=== PATIENT | female | born 1985 | race Asian ===

== ENCOUNTER 2016-05-21 07:30 | Inpatient (IN) | payer SELFPAY ==
[~2016-05-21] VITALS: Ht 165.1 cm; Wt 64.4 kg
[2016-05-24] MEDS ORDERED: CEFAZOLIN 2 GM IVPB PREMIX 50 ML IV ONE (10:00)
[2016-05-24 10:21] LABS: BASOPHILS % (AUTO) 0.3 % (0.0-2.0); EOSINOPHILS % (AUTO) 0.4 % (0.0-4.0); HEMATOCRIT 34.2 % (36-48); HEMOGLOBIN 11.8 g/dL (12.0-16.0); LYMPHOCYTES # (AUTO) 1.1 K/uL (1.0-5.5); LYMPHOCYTES % (AUTO) 17.7 % (20.5-51.5); MEAN CORPUSCULAR HEMOGLOBIN 32 pg (27-31); MEAN CORPUSCULAR HGB CONC 35 % (32-36); MEAN CORPUSCULAR VOLUME 93 fL (79.0-98.0); MONOCYTES # (AUTO) 0.7 K/uL (0.0-1.0); MONOCYTES % (AUTO) 11.2 % (1.7-9.3); NEUTROPHILS # (AUTO) 4.5 K/uL (1.8-7.7); NEUTROPHILS % (AUTO) 70.4 % (40.0-70.0); PLATELET COUNT (AUTO) 185 K/uL (130-430); RED BLOOD CELL COUNT(AUTO) 3.68 MIL/uL (4.2-6.2); RED CELL DISTRIBUTION WIDTH 12.9 % (9.0-15.0); WHITE BLOOD COUNT (AUTO) 6.3 K/uL (4.8-10.8)
[2016-05-24 11:37] VITALS: BP 108/66; PULSE 76; RESP 20; TEMP 98
[2016-05-24] MEDS ORDERED: OXYTOCIN/NORMAL SALINE 1,000 ML IV ONE ×2 (12:41→22:19)
[2016-05-24] MEDS ORDERED: LANOLIN 7 GM OINT. TP PRN (12:45)
[2016-05-24] MEDS ORDERED: OXYCODONE/ACETAMINOPHEN 5-325 TABLET PO PRN (12:45)
[2016-05-24] MEDS ORDERED: MEASLES,MUMPS&RUBELLA VACC/PF 12500 UNIT/0.5 ML VIAL SUBQ PRN (12:45)
[2016-05-24] MEDS ORDERED: ANUSOL 1 EA SUPP.RECT (PREPARATION H) RC PRN (12:45)
[2016-05-24] MEDS ORDERED: HYDROcodone/ACETAMIN 5-325 MG TAB (NORCO/ VICODIN) PO PRN (12:45)
[2016-05-24] MEDS ORDERED: LR 1,000 ML IV ONE (13:07)
[2016-05-24] MEDS ORDERED: KETOROLAC TROMETHAMINE 30 MG VIAL IM PRN (13:15)
[2016-05-24] MEDS ORDERED: fentaNYL CITRATE/PF 100 MCG/2 ML AMP IVP PRN (13:15)
[2016-05-24] MEDS ORDERED: NALBUPHINE HCL 10 MG/ML AMP IVP PRN (13:15)
[2016-05-24] MEDS ORDERED: ePHEDrine sulfate 50 MG/ML VIAL IVP PRN (13:15)
[2016-05-24] MEDS ORDERED: NALOXONE HCL 0.4 MG/ML AMP (NARCAN) IVP PRN (13:15)
[2016-05-24] MEDS ORDERED: DIPHENHYDRAMINE INJ 50 MG/ML VIAL IVP PRN (13:15)
[2016-05-24] MEDS ORDERED: ONDANSETRON HCL 4 MG/2 ML VIAL IVP PRN ×2 (13:15)
[2016-05-24 13:40] VITALS: BP 107/70
[2016-05-24] MEDS ORDERED: fentaNYL CITRATE/PF 100 MCG/2 ML AMP ONE (14:00)
[2016-05-24] MEDS ORDERED: MORPHINE SULFATE 10MG/10ML PF AMP ONE (14:00)
[2016-05-24] MEDS ORDERED: OXYTOCIN 10 UNIT/ML VIAL ONE (14:00)
[2016-05-24] MEDS ORDERED: METOCLOPRAMIDE HCL 10 MG/2 ML VIAL ONE (14:00)
[2016-05-24] MEDS ORDERED: LR 1,000 ML IV.SOLN IV ONE (14:00)
[2016-05-24] MEDS ORDERED: NS IRRIG SOLN 1000 ML IR ONE (14:00)
[2016-05-24] MEDS ORDERED: DEXAMETHASONE SOD PHOSPHATE 4 MG/ML VIAL ONE (14:00)
[2016-05-24] MEDS ORDERED: KETOROLAC TROMETHAMINE 30 MG VIAL IVP PRN (17:00)
[2016-05-24] MEDS: CEFAZOLIN 1 GM IVPB PREMIX 50 ML IV SCH (17:56)
[2016-05-24] MEDS ORDERED: TEMAZEPAM 15 MG CAPSULE PO PRN (21:00)
[2016-05-25] MEDS: CEFAZOLIN 1 GM IVPB PREMIX 50 ML IV SCH ×2 (00:10→06:03)
[2016-05-25 07:08] LABS: BASOPHILS % (AUTO) 0.3 % (0.0-2.0); EOSINOPHILS % (AUTO) 0.2 % (0.0-4.0); HEMATOCRIT 30.3 % (36-48); HEMOGLOBIN 10.4 g/dL (12.0-16.0); LYMPHOCYTES # (AUTO) 1.9 K/uL (1.0-5.5); LYMPHOCYTES % (AUTO) 18.7 % (20.5-51.5); MEAN CORPUSCULAR HEMOGLOBIN 32 pg (27-31); MEAN CORPUSCULAR HGB CONC 34 % (32-36); MEAN CORPUSCULAR VOLUME 93 fL (79.0-98.0); MONOCYTES % (AUTO) 10.1 % (1.7-9.3); NEUTROPHILS # (AUTO) 7.2 K/uL (1.8-7.7); NEUTROPHILS % (AUTO) 70.7 % (40.0-70.0); PLATELET COUNT (AUTO) 146 K/uL (130-430); RED BLOOD CELL COUNT(AUTO) 3.27 MIL/uL (4.2-6.2); RED CELL DISTRIBUTION WIDTH 12.5 % (9.0-15.0)
[2016-05-25 07:37] LABS: WHITE BLOOD COUNT (AUTO) 10.1 K/uL (4.8-10.8)
[2016-05-25] MEDS: SIMETHICONE 80 MG TAB.CHEW PO PRN ×2 (08:33→18:18)
[2016-05-25] MEDS: IBUPROFEN 600 MG TABLET PO SCH ×3 (12:17→23:54)
[2016-05-25] MEDS: OXYCODONE/ACETAMINOPHEN 5-325 TABLET PO PRN (22:50)
[2016-05-26] MEDS: IBUPROFEN 600 MG TABLET PO SCH ×3 (06:14→18:00)
[2016-05-26] MEDS: DOCUSATE SODIUM 100 MG CAPSULE PO PRN (13:13)
[2016-05-26] MEDS: SIMETHICONE 80 MG TAB.CHEW PO PRN (13:14)
[2016-05-26] MEDS: OXYCODONE/ACETAMINOPHEN 5-325 TABLET PO PRN (23:00)
[2016-05-27] MEDS: IBUPROFEN 600 MG TABLET PO SCH ×3 (00:02→11:41)
[2016-05-27] MEDS: DOCUSATE SODIUM 100 MG CAPSULE PO PRN (10:54)
[2016-05-27] MEDS: SIMETHICONE 80 MG TAB.CHEW PO PRN (11:42)
== END 2016-05-27 14:55 | disposition home or self-care (01) | DRG 766 ==
LOC: SPU 05-24 09:26
PROVIDERS: ADMIT Obstetrics & Gynecology; ATTEND Obstetrics & Gynecology
PROC: 10D00Z1 Extraction of Products of Conception, Low, Open Approach (ICD-10-PCS; principal; 2016-05-24 13:45)
DX: O87.4 Varicose veins of lower extremity in the puerperium (principal); Z37.0 Single live birth; Z3A.39 39 weeks gestation of pregnancy
CPT/HCPCS: 36415; 81002-TC; 85025; 86592; 86886; 86900; 86901; 94760; J0690; J1100; J1885; J2274; J2590; J2765; J3010; J7120